=== PATIENT | female | born 1985 | race Asian ===

== ENCOUNTER → 2025-04-17 13:01 | Outpatient (CLI) | payer OTHER, SELFPAY ==
[2025-04-17 14:04] LABS: Add Manual Diff / Slide Review NO; Hematocrit 42.9 % (36-46); Hemoglobin 15.1 g/dL (12.0-16.0); Lymphocytes Absolute Auto 2000 /uL (1100-4500); Mean Corpuscular HGB Conc 35.1 % (30-36); Mean Corpuscular Hemoglobin 31.1 PG (26-34); Mean Corpuscular Volume 88.5 fL (80-100); Platelet Count 326 X10^3/uL (150-400)
[2025-04-17 14:31] LABS: HEMOLYSIS < 15 (0-50); Iron 182 ug/dL (37-170)
[2025-04-17 14:34] LABS: Alanine Aminotransferase 73 IU/L (<35); Albumin 4.7 g/dL (3.5-5.0); Albumin Globulin Ratio 1.5 (1.0-2.8); Alkaline Phosphatase 82 U/L (38-126); Blood Urea Nitrogen 16 mg/dL (7-17); Calcium 9.7 mg/dL (8.4-10.2); Carbon Dioxide 24 mmol/L (22-32); Chloride 101 mmol/L (98-107); Estimated Glomerular Filt Rate > 60 mL/min (>60); Globulin 3.2 g/dL (1.7-4.1); Glucose 104 mg/dL (70-99); HEMOLYSIS < 15 (0-50); Potassium 4.0 mmol/L (3.4-5.1); Sodium 136 mmol/L (137-145); Total Protein 7.9 g/dL (6.3-8.2)
[2025-04-17 14:45] LABS: Percent Iron Saturation 58 % (15-50); Total Iron Binding Capacity 313 ug/dL (265-497); Transferrin 282 mg/dL (206-381)
[2025-04-17 15:02] LABS: Thyroid Stimulating Hormone 2.15 uIU/mL (0.47-4.68)
[2025-04-17 15:07] LABS: Ferritin 103 ng/mL (6-137)
== END ==
PROVIDERS: PCP Student in an Organized Health Care Education/Training Program; Referring Provider Student in an Organized Health Care Education/Training Program; Visit Provider Student in an Organized Health Care Education/Training Program
DX: N93.9 Abnormal uterine and vaginal bleeding, unspecified (principal); R74.8 Abnormal levels of other serum enzymes
CPT/HCPCS: 36415; 80053; 82728; 83540; 83550; 84443; 85025

== ENCOUNTER → 2025-04-21 12:17 | Outpatient (CLI) | payer OTHER, SELFPAY ==
--- NOTE | 2025-04-21 12:19 | DI.US.S_ITS ---
PROCEDURE: US PELVIC COMPLETE INDICATIONS: Abnormal uterine bleeding TECHNIQUE: Real-time scanning was performed of the pelvic organs, with image documentation. Additional endovaginal scanning was necessary due to incomplete visualization of the adnexal and endometrial structures by transabdominal scanning. COMPARISON: None. FINDINGS: Uterus: Uterus is anteverted and normal in size at 8.2 x 3.9 x 5.1 cm. The myometrium is homogeneous. The endometrium measures 5 mm combined thickness. Intrauterine device within the endometrial complex. Ovaries: The right ovary measures 4.4 x 3.5 x 3.7 cm, with a calculated ovarian volume of 3.7 cc. The left ovary measures 2.5 x 1.3 x 1.7 cm, with a calculated ovarian volume of 2.6 cc. The ovaries have a normal sonographic appearance. Less than 12 follicles can be seen in each ovary. Right adnexal 3.7 x 2.8 x 3.5 cm follicle. Other: No pathologic free abdominal or pelvic fluid. IMPRESSION: 1. Unremarkable uterus with appropriate positioning of the intrauterine device. 2. Right adnexal 3.7 cm follicle requires no further follow-up in this reproductive age female. We strive to produce accurate, complete, and clear reports of imaging services. To assist us in improving patient care, this report was composed using standard report templates and voice recognition software. Therefore, it may contain abnormal punctuation, insertions and/or omissions. Occasional wrong-word or sound-alike substitutions may occur. Though we review the report and make efforts to correct it, we do recommend that the report be read carefully in proper context to recognize any text inaccuracies. Dictated by: Norris Figueroa M.D. on 04/21/2025 at 14:10 Approved by: Norris Figueroa M.D. on 04/21/2025 at 14:35
--- NOTE | 2025-04-21 13:35 | DI.US.S_ITS ---
PROCEDURE: US ABDOMEN LIMITED INDICATIONS: Evaluate liver for elevated LFT's TECHNIQUE: Real-time scanning was performed of the abdominal and retroperitoneal organs, with image documentation. COMPARISON: None. FINDINGS: Liver: Diffusely increased hepatic echogenicity. The liver is normal in size at 14.7 cm. No focal hepatic lesion. Gallbladder: No gallstones. No wall thickening. No pericholecystic edema. Negative sonographic Enriquez's sign. Biliary ducts: Intrahepatic bile ducts are non-dilated. Extrahepatic bile duct caliber measures 3 mm. Normal is 6-7 mm or less in diameter, or 10 mm or less post-cholecystectomy. Pancreas: Visualized portions of the pancreas are sonographically normal. Miscellaneous: No free abdominal fluid. IMPRESSION: 1. Diffusely increased right hepatic echogenicity, concerning for hepatocellular dysfunction such as hepatic steatosis. 2. Normal biliary tree. Dictated by: Norris Figueroa M.D. on 04/21/2025 at 14:08 Approved by: Norris Figueroa M.D. on 04/21/2025 at 14:10
== END ==
PROVIDERS: PCP Student in an Organized Health Care Education/Training Program; Referring Provider Student in an Organized Health Care Education/Training Program; Visit Provider Student in an Organized Health Care Education/Training Program
DX: N93.9 Abnormal uterine and vaginal bleeding, unspecified (principal); R74.8 Abnormal levels of other serum enzymes; Z97.5 Presence of (intrauterine) contraceptive device
CPT/HCPCS: 76705; 76830; 76856